=== PATIENT | male | born 1940 | race Caucasian/White ===

== ENCOUNTER 2016-09-24 14:26 | Emergency (ER) | payer MEDICARE, OTHER ==
[2016-09-24 15:43] VITALS: BP 132/74
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
== END 2016-09-24 16:30 | disposition home or self-care (01) ==
LOC: ER 14:26
DX: H11.32 Conjunctival hemorrhage, left eye (principal); S32.009A Unspecified fracture of unspecified lumbar vertebra, initial encounter for closed fracture; Y04.2XXA Assault by strike against or bumped into by another person, initial encounter